=== PATIENT | male | born 1970 | race Caucasian/White ===

== ENCOUNTER 2020-10-30 10:51 | Inpatient (IN) ==
[2020-10-30] MEDS ORDERED: Naloxone 0.4 MG/ML INJ IVP PRN ×2 (13:24→14:42)
[2020-10-30] MEDS: 0.9 % Sodium Chloride 1,000 ML IVC SCH (14:12)
[2020-10-30] MEDS ORDERED: Thiamine (B-1) 100 MG in 0.9 % Sodium Chloride 50 ML IVPB ONE (14:23)
[2020-10-30] MEDS ORDERED: *HR* Dextrose 50 % in Water (Vial) 50 ML VIAL IVP PRN (14:39)
[2020-10-30] MEDS ORDERED: Dextrose Gel 15 GM/37.5 ML TUBE PO PRN ×2 (14:39)
[2020-10-30] MEDS ORDERED: D5% in Water 1,000 ML IVC PRN (14:39)
[2020-10-30 14:46] LABS: Basophils # 0.1 K/mcL (0.0-0.2); Basophils % 0.7 %; Eosinophils # 0.1 K/mcL (0.0-0.6); Eosinophils % 0.8 %; Hematocrit 30.5 % (37.5-50.1); Hemoglobin 9.9 g/dL (12.9-16.9); Immature Granulocytes % 1.5 % (0-4); Lymphocytes # 1.2 K/mcL (0.6-4.6); Lymphocytes % 15.5 %; Mean Corpuscular HGB Conc 32.5 g/dL (31.6-35.5); Mean Corpuscular Hemoglobin 28.3 pg (28.0-33.3); Mean Corpuscular Volume 87.1 fL (83.0-100.0); Mean Platelet Volume 8.6 fL (9.4-12.4); Monocytes # 0.3 K/mcL (0.0-1.3); Monocytes % 4.2 %; Neutrophils # 5.8 K/mcL (1.6-8.9); Platelet Count 163 K/mcL (140-400); Red Cell Distribution Width 14.9 % (11.5-14.5); Segmented Neutrophils % 77.3 %; White Blood Count 7.5 K/mcL (4.3-11.1)
[2020-10-30 14:54] LABS: INR 1.3; Prothrombin Time 15.3 Seconds (9.4-12.1)
[2020-10-30 15:10] LABS: Albumin/Globulin Ratio 0.8 (1.1-2.2); Bilirubin,Indirect 0.4 mg/dL (0.0-1.0); Bilirubin,Total 0.4 mg/dL (0.3-1.0); Calcium 7.6 mg/dL (8.6-10.3); Potassium 4.9 mEq/L (3.5-5.1)
[2020-10-30] MEDS: Insulin LISPRO 300 UNITS/3 ML VIAL SUBQ SCH (17:36)
[2020-10-31] MEDS: Insulin LISPRO 300 UNITS/3 ML VIAL SUBQ SCH ×5 (00:03→18:45)
[2020-10-31 02:23] LABS: Sodium, Urine 12.9 mEq/L
[2020-10-31] MEDS: 0.9 % Sodium Chloride 1,000 ML IVC SCH (05:01)
[2020-10-31 05:25] LABS: Basophils % 0.5 %; Eosinophils # 0.1 K/mcL (0.0-0.6); Eosinophils % 0.7 %; Hematocrit 28.4 % (37.5-50.1); Immature Granulocytes % 0.9 % (0-4); Lymphocytes # 1.5 K/mcL (0.6-4.6); Lymphocytes % 19.5 %; Mean Corpuscular HGB Conc 31.7 g/dL (31.6-35.5); Mean Corpuscular Volume 88.2 fL (83.0-100.0); Mean Platelet Volume 9.2 fL (9.4-12.4); Monocytes # 0.4 K/mcL (0.0-1.3); Monocytes % 4.7 %; Neutrophils # 5.5 K/mcL (1.6-8.9); Platelet Count 157 K/mcL (140-400); Red Blood Count 3.22 M/mcL (4.19-5.50); Red Cell Distribution Width 15.1 % (11.5-14.5); Segmented Neutrophils % 73.7 %; White Blood Count 7.5 K/mcL (4.3-11.1)
[2020-10-31 05:51] LABS: Calcium 7.2 mg/dL (8.6-10.3); Potassium 5.1 mEq/L (3.5-5.1)
[2020-10-31 05:54] LABS: % Iron Saturation 12 % (20-55); Iron 31 mcg/dL (65-175); Transferrin 191 mg/dL (203-362)
[2020-10-31 06:00] LABS: Ferritin 313 ng/mL (20-250)
[2020-10-31] MEDS: Sodium Bicarbonate 50 MEQ in 0.45 % Sodium Chloride 1,000 ML IVC SCH (16:23)
[2020-10-31 16:46] LABS: Total Protein,Peritoneal Fluid 4.1 g/dL
[2020-10-31 16:59] LABS: RBC,Peritoneal Fluid 6000 RBC/mcL
[2020-10-31 18:13] LABS: Appearance of Peritoneal Fl HAZY (Clear)
[2020-10-31 18:14] LABS: Basophils,Peritoneal Fluid 0 %; Eosinophils,Peritoneal Fluid 0 %
[2020-10-31] MEDS: *HR* Heparin 5,000 UNIT/ML VIAL SQ SCH (21:32)
[2020-10-31 21:55] LABS: Amorphous Sediment,Urine Few per hpf (None-Few); Bacteria,Urine Few per hpf (None-Few); Bilirubin,Urine Negative (Negative); Blood,Urine Moderate (Negative); Clarity,Urine Turbid (Clear); Color,Urine Light-Yellow (Yellow); Glucose,Urine (UA) Normal (Normal); Ketones,Urine Negative (Negative); Leukocyte Esterase,Urine Moderate (Negative); Mucus,Urine Few per lpf (None-Few); Nitrite,Urine Negative (Negative); PH,Urine 5.5 pH Units (5.0-8.0); Protein,Urine 50 mg/dL (Neg-Trace); Specific Gravity,Urine 1.011 (1.010-1.025); Squamous Epithelial Cell,Urine Few per hpf (None-Few); Urobilinogen,Urine Normal (Normal)
[2020-11-01] MEDS: Sodium Bicarbonate 50 MEQ in 0.45 % Sodium Chloride 1,000 ML IVC SCH ×2 (04:05→17:08)
[2020-11-01] MEDS: *HR* Heparin 5,000 UNIT/ML VIAL SQ SCH ×3 (05:06→21:20)
[2020-11-01] MEDS: Insulin LISPRO 300 UNITS/3 ML VIAL SUBQ SCH ×4 (07:47→17:07)
[2020-11-01 09:16] LABS: Basophils % 0.4 %; Eosinophils % 0.4 %; Hematocrit 26.8 % (37.5-50.1); Hemoglobin 8.5 g/dL (12.9-16.9); Immature Granulocytes % 0.6 % (0-4); Lymphocytes # 0.8 K/mcL (0.6-4.6); Lymphocytes % 16.2 %; Mean Corpuscular HGB Conc 31.7 g/dL (31.6-35.5); Mean Corpuscular Hemoglobin 28.6 pg (28.0-33.3); Mean Corpuscular Volume 90.2 fL (83.0-100.0); Mean Platelet Volume 9.4 fL (9.4-12.4); Monocytes # 0.3 K/mcL (0.0-1.3); Monocytes % 5.4 %; Neutrophils # 3.9 K/mcL (1.6-8.9); Platelet Count 122 K/mcL (140-400); Red Blood Count 2.97 M/mcL (4.19-5.50); Red Cell Distribution Width 14.6 % (11.5-14.5)
[2020-11-01 09:35] LABS: Calcium 7.2 mg/dL (8.6-10.3); Potassium 4.4 mEq/L (3.5-5.1)
[2020-11-01] MEDS ORDERED: Ferumoxytol 510 MG in 0.9 % Sodium Chloride 100 ML IVPB ONE (11:46)
[2020-11-01] MEDS ORDERED: Insulin DETEMIR 100 UNIT/ML X5UNITS SUBQ SCH (21:00)
[2020-11-01] MEDS ORDERED: Pregabalin 75 MG CAPSULE PO SCH (21:00)
[2020-11-01] MEDS: Budesonide/Formoterol 160/4.5 1 PUFF INH IH SCH (21:48)
[2020-11-01] MEDS ORDERED: Melatonin 3 MG TABLET PO PRN (23:38)
[2020-11-02] MEDS: *HR* Heparin 5,000 UNIT/ML VIAL SQ SCH ×2 (05:48→14:32)
[2020-11-02 06:00] LABS: Basophils % 0.3 %; Eosinophils % 0.8 %; Hematocrit 25.1 % (37.5-50.1); Immature Granulocytes % 0.8 % (0-4); Lymphocytes # 0.8 K/mcL (0.6-4.6); Lymphocytes % 19.3 %; Mean Corpuscular HGB Conc 31.9 g/dL (31.6-35.5); Mean Corpuscular Hemoglobin 28.7 pg (28.0-33.3); Mean Platelet Volume 8.9 fL (9.4-12.4); Monocytes # 0.3 K/mcL (0.0-1.3); Monocytes % 7.2 %; Neutrophils # 2.8 K/mcL (1.6-8.9); Platelet Count 105 K/mcL (140-400); Red Blood Count 2.79 M/mcL (4.19-5.50); Red Cell Distribution Width 14.6 % (11.5-14.5); Segmented Neutrophils % 71.6 %; White Blood Count 3.9 K/mcL (4.3-11.1)
[2020-11-02 06:24] LABS: Calcium 7.6 mg/dL (8.6-10.3); Potassium 4.3 mEq/L (3.5-5.1)
[2020-11-02] MEDS: Sodium Bicarbonate 50 MEQ in 0.45 % Sodium Chloride 1,000 ML IVC SCH (06:38)
[2020-11-02 06:56] VITALS: BP 107/73
[2020-11-02] MEDS: Budesonide/Formoterol 160/4.5 1 PUFF INH IH SCH (08:10)
[2020-11-02] MEDS: Insulin LISPRO 300 UNITS/3 ML VIAL SUBQ SCH ×2 (08:56→12:57)
[2020-11-02] MEDS ORDERED: BuPROPion XL (24 HR) 150 MG TABLET PO SCH (09:00)
[2020-11-02] MEDS ORDERED: Famotidine 20 MG TABLET PO SCH (09:00)
[2020-11-02 23:34] LABS: Lambda Qnt Free Light Chains 96.75 mg/L (5.71-26.30)
[2020-11-03 08:14] LABS: Kappa Qnt Free Light Chains 145.76 mg/L (3.30-19.40)
[2020-11-05 09:39] LABS: Alpha 2 Globulin (PEP) 0.92 g/dL (0.48-1.05); Beta Globulin (PEP) 0.91 g/dL (0.48-1.10)
[2020-11-05 11:41] LABS: IFE Reflexed IFE Done; Immunoglobulin A 441 mg/dL (68-408); Immunoglobulin G 1179 mg/dL (768-1632); Immunoglobulin M 81 mg/dL (35-263)
== END 2020-11-02 18:33 | disposition home or self-care (01) | DRG 254 ==
LOC: 2NENU → SUATTDRO 12:36 → 2NENU 11-02 09:41
PROVIDERS: ADMIT Internal Medicine; ATTEND Student in an Organized Health Care Education/Training Program